=== PATIENT | female | born 1970 | race Caucasian/White ===

== ENCOUNTER 2018-03-20 21:01 | Emergency (ER) | payer BC ==
[~2018-03-20] VITALS: Ht 162.6 cm; Wt 83.9 kg
[~2018-03-20 21:01] MED LIST: LORazepam 1 MG TABLET ONE; ONDANSETRON 4 MG ODT TAB ONE
[2018-03-20 21:23] VITALS: BP_SYST 163
[2018-03-20] MEDS ORDERED: ENALAPRILAT DIHYDRATE 1.25 MG/ML VIAL IVP ONE (22:00)
[2018-03-20] MEDS ORDERED: hydrALAZINE HCL 20 MG/ML VIAL IVP ONE (22:00)
[2018-03-20 23:47] VITALS: BP_SYST 135
== END 2018-03-20 23:47 | disposition home or self-care (01) ==
LOC: SED 21:01
DX: I10 Essential (primary) hypertension (principal); J45.909 Unspecified asthma, uncomplicated
CPT/HCPCS: 70450-TC; 81025; 96374; 99284; Q0162